=== PATIENT | female | born 1990 | race Two or more races ===

== ENCOUNTER 2024-07-05 09:55 | Day surgery (SDC) | payer MEDICAID, SELFPAY ==
[2024-07-04 13:58] VITALS: BMI 22.8
[2024-07-04 14:11] LABS: HCG Qualitative,Urine Negative
[2024-07-05] VITALS (12 sets, daily range): BP systolic 96–116; BP diastolic 71–86; PULSE 72–94; RESP 14–22; TEMP 36.4–36.6; O2SAT 100; BMI 21.9
[2024-07-05] MEDS: SODIUM CHLORIDE 0.9% 500 ML 500 ML 20 ML IV (12:10)
[2024-07-05] MEDS: fentaNYL CIT INJ 50 mCg/ML AMP 2ML IV (12:15)
[2024-07-05] MEDS: DiphenhydrAMINE INJ 50 MG/ML VIAL 25 MG IV (12:15)
[2024-07-05] MEDS: MIDAZOLAM INJ 1 MG/ML VIAL 2 ML 2 MG IV (12:19)
== END 2024-07-05 13:30 | disposition home or self-care (01) ==
PROVIDERS: PCP Nurse Practitioner Family; Referring Provider Internal Medicine Gastroenterology; Visit Provider Internal Medicine Gastroenterology
PROC: (CPT 43239; principal; 2024-07-05 09:30)
PROC: 0DBE8ZX Excision of Large Intestine, Via Natural or Artificial Opening Endoscopic, Diagnostic (ICD-10-PCS; CPT 45380; 2024-07-05 09:30)
DX: K64.8 Other hemorrhoids (principal); K29.50 Unspecified chronic gastritis without bleeding; K44.9 Diaphragmatic hernia without obstruction or gangrene
CPT/HCPCS: 45380; 81025; A4649; J1200; J2250; J3010; J7040